=== PATIENT | male | born 1960 | race Caucasian/White ===

== ENCOUNTER → 2018-01-11 | Outpatient (REF) | payer OTHER ==
[2018-01-11 20:14] LABS: RBC BODY FLUID 187 10^3/uL (<2); WBC BODY FLUID 392 /uL (0-10)
[2018-01-11 20:16] LABS: APPEARANCE, BODY FLUID CLOUDY (CLEAR); BF DIFF IF INDICATED? YES (NO); SOURCE, BODY FLUID LFT ELBOW; SYNOVIAL FLUID COLOR RED (YELLOW)
[2018-01-11 20:26] LABS: CRYSTALS, BODY FLUID NONE SEEN (NONE SEEN); SOURCE, BODY FLUID CRYSTALS LFT ELBOW
== END ==
LOC: M LAB REF 19:16
DX: M70.22 Olecranon bursitis, left elbow (principal)

== ENCOUNTER → 2020-07-21 | Outpatient (CLI) | payer OTHER | LOC: M RAD 08:02 | PROVIDERS: ATTEND Nurse Practitioner Primary Care | DX: Z12.2 Encounter for screening for malignant neoplasm of respiratory organs (principal); F17.210 Nicotine dependence, cigarettes, uncomplicated ==

== ENCOUNTER → 2020-07-21 | Outpatient (CLI) | payer OTHER ==
[~2020-07-21] MED LIST: ISOVUE-370 76% 100ML VIAL As Ordered ONE
--- NOTE | 2020-07-21 09:24 | REP ---
INDICATION: LOCALIZED SWELLING, MASS AND LUMP COMPARISON: None TECHNIQUE: Axial contrast enhanced images from the thoracic inlet to the upper abdomen with coronal and sagittal reformations using 100 ml Isovue 370 intravenous contrast material. This CT examination was performed using the following dose reduction techniques: Automated exposure control, adjustment of mA and/or kv according to the patient's size, and use of iterative reconstruction technique. FINDINGS: Examination is somewhat limited by respiratory motion artifact. The lung hood demonstrate mild scattered chronic interstitial changes and scattered subpleural bullae suggesting early emphysematous disease. No consolidation, obvious nodule or mass lesion. No effusion. No pneumothorax. Tracheobronchial tree is patent. No obvious adenopathy. Mediastinum demonstrates atherosclerotic changes to the thoracic aorta and coronary arteries. No aortic aneurysm or dissection is appreciated. No cardiomegaly or pericardial effusion identified. Surrounding musculoskeletal structures are intact and without acute osseous abnormality. IMPRESSION: Mild early emphysematous changes with minimal scattered scarring and scattered small subpleural bullae. No obvious acute mediastinal or pleuroparenchymal process appreciated. <Electronically signed by Michael Fischer > 07/21/20 [id number]
--- NOTE | 2020-07-21 09:57 | REPVR ---
PROCEDURE INFORMATION: Exam: CT Neck With Contrast Exam date and time: 07/21/2020 8:26 AM Age: 59 years old Clinical indication: Mass, lump, or swelling in neck; Additional info: Localized swelling, mass and lump TECHNIQUE: Imaging protocol: Computed tomography images of the neck with intravenous contrast. Radiation optimization: All CT scans at this facility use at least one of these dose optimization techniques: automated exposure control; mA and/or kV adjustment per patient size (includes targeted exams where dose is matched to clinical indication); or iterative reconstruction. Contrast material: ISOVUE 370; Contrast volume: 100 ml; Contrast route: INTRAVENOUS (IV); COMPARISON: No relevant prior studies available. FINDINGS: Brain: Posterior left posterior cranial fossa CSF space devoid of vessels measuring 6.4 by 2.9 by 1.4 cm, without significant mass effect for its size. Nasopharynx: Unremarkable. Oropharynx: Unremarkable. No significant tonsillar enlargement. Hypopharynx: Unremarkable. Larynx: Unremarkable. Normal epiglottis. Retropharyngeal space: Unremarkable. Submandibular/Parotid glands: Normal. Glands are normal in size. Thyroid: Normal. No enlarged or calcified nodules. Lymph nodes: Unremarkable. No lymphadenopathy. Trachea: Visualized trachea is unremarkable. Lungs: Dystrophic calcifications with scarring right pulmonary apex. Bones/joints: Mild C4-C5 spondylosis. Multilevel right cervical neural foraminal stenoses and facet primary osteoarthritis. Vasculature: Right common carotid artery bifurcation mild calcification. Soft tissues: Moderate paraseptal emphysema bilaterally. IMPRESSION: 1. No specific mass identified. 2. Left posterior cranial fossa benign arachnoid cyst. 3. Pulmonary emphysema. Electronically signed by: Wan Rich On 07/21/2020 09:57:55 AM
== END ==
LOC: M RAD 08:09
PROVIDERS: ATTEND Family Medicine
DX: G93.0 Cerebral cysts (principal); J43.9 Emphysema, unspecified; R22.9 Localized swelling, mass and lump, unspecified
CPT/HCPCS: 70491; 71260; Q9967

== ENCOUNTER → 2020-08-20 | Outpatient (CLI) | payer OTHER ==
--- NOTE | 2020-08-20 13:37 | PFTRPT ---
Height: 70.50 Inches Weight: 180.00 Lbs BSA: 2.01 Diagnosis: R05 DATE: 08/20/2020 ORDERING PHYSICIAN: Dr. Oswaldo Viramontes Pre and post bronchodilator studies have excellent technical quality. Forced vital capacity is normal. FEV1 is in proportion. Obstructive index is therefore normal. Expiratory limit of the flow-volume loop is normal. No significant bronchodilator response is identified. Total lung capacity is normal. Residual volume borderline for air trapping. Diffusing capacity although reduced is appropriate for alveolar volume and no hemoglobin available for correction. Airway resistance and conductance are normal. IMPRESSION: Borderline air trapping with a mild decline in the absolute diffusing capacity. Please correlate clinically. MTDD
== END ==
LOC: M CARPUL 13:05
PROVIDERS: ATTEND Family Medicine
DX: R05 Cough (principal)

== ENCOUNTER → 2021-09-22 | Outpatient (CLI) | payer OTHER | LOC: M RAD 10:07 | PROVIDERS: ATTEND Orthopaedic Surgery | DX: Z96.652 Presence of left artificial knee joint (principal); M25.562 Pain in left knee ==

== ENCOUNTER → 2022-05-23 | Outpatient (CLI) | payer OTHER ==
[~2022-05-23] MED LIST changes: -ISOVUE-370 76% 100ML VIAL As Ordered ONE; +LISI20TA33 PO; +MELO15TA28 PO; +METH-1164 PO; +TRAM50TA2 PO
== END ==
LOC: M LABSMTC 09:35
PROVIDERS: ATTEND Anesthesiology
DX: Z01.818 Encounter for other preprocedural examination (principal); Z11.52 Encounter for screening for COVID-19

== ENCOUNTER 2022-05-28 09:45 | Day surgery (SDC) | payer OTHER ==
[~2022-05-28] VITALS: Ht 180.3 cm; Wt 82.0 kg
[~2022-05-28 09:45] MED LIST changes: +NS 1,000 ML IV ONE
[2022-05-28] MEDS ORDERED: propofoL 200 MG/20 ML VIAL As Ordered ONE (10:49)
[2022-05-28] MEDS ORDERED: LIDOCAINE 2% 100MG/5ML SDV (FOR ANES.) As Ordered ONE (10:49)
[2022-05-28 11:48] VITALS: BP 121/72
== END 2022-05-28 11:58 | disposition home or self-care (01) ==
LOC: M OPP 09:45
PROVIDERS: ATTEND Internal Medicine Gastroenterology
DX: Z12.11 Encounter for screening for malignant neoplasm of colon (principal); Z86.010 Personal history of colon polyps; K63.5 Polyp of colon; K57.30 Diverticulosis of large intestine without perforation or abscess without bleeding; K64.0 First degree hemorrhoids; Z79.1 Long term (current) use of non-steroidal anti-inflammatories (NSAID); Z79.899 Other long term (current) drug therapy; I10 Essential (primary) hypertension; J44.9 Chronic obstructive pulmonary disease, unspecified; F17.200 Nicotine dependence, unspecified, uncomplicated; Z87.442 Personal history of urinary calculi; Z96.652 Presence of left artificial knee joint

== ENCOUNTER → 2023-11-03 | Outpatient (REF) | payer OTHER ==
[~2023-11-03] MED LIST changes: -NS 1,000 ML IV ONE
[2023-11-03 18:14] LABS: APPEARANCE, URINE CLEAR (CLEAR); BACTERIA, URINE AUTO NEGATIVE (NEGATIVE); BILIRUBIN, URINE AUTO NEGATIVE (NEGATIVE); BLOOD, URINE BLOOD NEGATIVE (NEGATIVE); COLOR, URINE YELLOW (YELLOW); GLUCOSE, URINE (UA) AUTO NEGATIVE (NEGATIVE); KETONE, URINE AUTO NEGATIVE (NEGATIVE); LEUKOCYTE ESTERASE, URINE AUTO NEGATIVE (NEGATIVE); MUCUS, URINE SMALL (NEGATIVE); NITRITE, URINE AUTO NEGATIVE (NEGATIVE); PROTEIN, URINE AUTO NEGATIVE (NEGATIVE); RBC, URINE AUTO 1 /HPF (0-3); SPECIFIC GRAVITY URINE AUTO 1.026 (1.002-1.035); SQUAMOUS EPITHELIAL CELL UR AU 0 /HPF (0-6); UROBILINOGEN, URINE AUTO 0.2 mg/dL (0.0-2.0); WBC, URINE AUTO 0 /HPF (0-3)
== END ==
LOC: M SMT 16:58
PROVIDERS: ATTEND Urology
DX: R39.198 Other difficulties with micturition (principal)